=== PATIENT | male | born 1985 | race Caucasian/White ===

== ENCOUNTER 2018-07-05 19:11 | Emergency (ER) | payer OTHER ==
[2018-07-05] MEDS ORDERED: SODIUM CHLORIDE 0.9% 1,000 ML IV STA (20:13)
[2018-07-05 20:40] LABS: Appearance,Urine Clear (Clear); Bilirubin,Urine Negative (Negative); Blood,Urine Negative (Negative); Color,Urine Colorless; Glucose,Urine (UA) Negative (Negative); Ketones,Urine Trace (Negative); Leukocyte Esterase,Urine Negative (Negative); Nitrite,Urine Negative (Negative); PH, Urine 6.5 (5.0-8.0); Protein,Urine Negative (Negative); Specific Gravity,Urine 1.002 (1.001-1.035); Urobilinogen,Urine <2.0 mg/dL (<2.0)
[2018-07-05 20:41] LABS: Basophils % (A) 0 %; Eosinophils # (A) 0.1 k/uL (0-0.7); Eosinophils % (A) 1 %; HCT 46.6 % (39.0-53.0); HGB 15.5 gm/dL (13.0-17.5); Lymphocytes # (A) 1.9 k/uL (1.0-4.8); Lymphocytes % (A) 27 %; MCH 29.6 pg (25.0-35.0); MCHC 33.2 g/dL (31.0-37.0); MCV 89.2 fL (80.0-100.0); Monocytes # (A) 0.3 k/uL (0-1.0); Monocytes % (A) 5 %; Neutrophils # (A) 4.6 k/uL (1.3-7.7); Neutrophils % (A) 65 %; Platelet Count 218 k/uL (150-450); RBC 5.22 m/uL (4.30-5.90); RDW 12.7 % (11.5-15.5); WBC 7.1 k/uL (3.8-10.6)
[2018-07-05 20:51] LABS: ALT 35 U/L (21-72); AST 25 U/L (17-59); Albumin 5.2 g/dL (3.5-5.0); Alkaline Phosphatase 43 U/L (38-126); Anion Gap 12 mmol/L; Blood Urea Nitrogen 12 mg/dL (9-20); Calcium 10.5 mg/dL (8.4-10.2); Carbon Dioxide 27 mmol/L (22-30); Chloride 102 mmol/L (98-107); Glucose 90 mg/dL (74-99); Potassium 3.9 mmol/L (3.5-5.1); Sodium 141 mmol/L (137-145); Total Bilirubin 0.7 mg/dL (0.2-1.3); Total Protein 8.6 g/dL (6.3-8.2)
[2018-07-05 20:53] LABS: INR 1.1 (<1.2); Partial Thromboplastin Time 24.1 sec (22.0-30.0); Prothrombin Time 10.4 sec (9.0-12.0)
[2018-07-05 20:55] LABS: Amphetamine Screen,Urine Not Detected (NotDetected); Barbiturate Screen,Urine Not Detected (NotDetected); Benzodiazepines Screen,Urine Not Detected (NotDetected); Cocaine Screen,Urine Not Detected (NotDetected); Methadone Screen, Urine Not Detected (NotDetected); Opiate Screen,Urine Not Detected (NotDetected); Oxycodone Screen, Urine Not Detected (NotDetected); Phencyclidine Screen,Urine Not Detected (NotDetected); Tricyclic Antidepressant,Urine Not Detected (NotDetected); Urn Cannabinoid Scrn Not Detected (NotDetected)
[2018-07-05 20:56] LABS: Creatine Kinase 135 U/L (55-170)
[2018-07-05 21:08] LABS: Creatine Kinase MB 0.2 ng/mL (0.0-2.4); Troponin I <0.012 ng/mL (0.000-0.034)
--- NOTE | 2018-07-05 21:33 | ED ---
Dizziness HPI - General Chief Complaint: Dizziness Stated Complaint: Dizzy, Neck Pain Time Seen by Provider: 07/05/18 19:56 Source: patient Mode of arrival: ambulatory Limitations: no limitations - History of Present Illness Initial Comments: 32-year-old male patient presents to the emergency department today for evaluation of dizziness, neck pain, and arm numbness and tingling. Patient states for the last several days he has been feeling unwell. States that he developed weakness to his bilateral arms, states he has been having difficulty grasping things at times. States that a couple days later he developed a burning pain at the base of his neck. Patient states he did see a chiropractor today thinking that his symptoms may be related to his neck and did feel better for a little bit but then suddenly became very dizzy and started to feel weak again. Patient has any headaches with this. States he was having some spots in his vision as well as some blurred vision. Denies any fevers, chills, or sweats. Denies any chest pain or shortness of breath. Patient states these episodes to, and he is breathing heavy. States he does feel anxious, but is not sure if his symptoms are related to that. Patient denies any recent rash, abdominal pain, nausea, vomiting, diarrhea, constipation, hematuria, dysuria, urinary urgency, urinary frequency, or any other complaints. - Related Data Allergies Allergy/AdvReac Type Severity Reaction Status Date / Time No Known Allergies Allergy Verified 07/05/18 19:16 Review of Systems ROS Statement: Those systems with pertinent positive or pertinent negative responses have been documented in the HPI. ROS Other: All systems not noted in ROS Statement are negative. Past Medical History Past Medical History: No Reported History History of Any Multi-Drug Resistant Organisms: None Reported Past Surgical History: No Surgical Hx Reported Past Psychological History: Anxiety Smoking Status: Never smoker Past Alcohol Use History: None Reported Past Drug Use History: None Reported General Exam Limitations: no limitations General appearance: alert, in no apparent distress, other (This is a well- developed, well-nourished adult male patient in no acute distress. Vital signs upon presentation are temperature 98.5F, pulse 94, respirations 20, blood pressure 142/86, pulse ox 100% on room air.) Eye exam: Present: normal appearance, PERRL, EOMI. Absent: scleral icterus, conjunctival injection, periorbital swelling ENT exam: Present: normal exam, normal oropharynx, mucous membranes moist Neck exam: Present: normal inspection, full ROM. Absent: tenderness, meningismus, lymphadenopathy Respiratory exam: Present: normal lung sounds bilaterally. Absent: respiratory distress, wheezes, rales, rhonchi, stridor Cardiovascular Exam: Present: regular rate, normal rhythm, normal heart sounds. Absent: systolic murmur, diastolic murmur, rubs, gallop, clicks GI/Abdominal exam: Present: soft, normal bowel sounds. Absent: distended, tenderness, guarding, rebound, rigid Neurological exam: Present: alert, oriented X3, CN II-XII intact Expanded Cranial nerves: EOM's Intact: Normal, Nystagmus: Normal Motor strength exam: RUE: 5, LUE: 5, RLE: 5, LLE: 5 Psychiatric exam: Present: normal affect, normal mood Skin exam: Present: warm, dry, intact, normal color. Absent: rash Course Vital Signs 07/05/18 07/05/18 19:12 22:40 Temperature 98.5 F 98.2 F Pulse Rate 94 68 Respiratory 20 16 Rate Blood Pressure 142/86 132/68 O2 Sat by Pulse 100 98 Oximetry EKG Findings - EKG Comments: EKG Findings:: EKG obtained at 2047 shows normal sinus rhythm with a ventricular rate of 82, NV interval 160, QRS duration 94, QT 356, QTC 4:15. No evidence of ST elevation or depression Medical Decision Making - Medical Decision Making 32-year-old male patient presents the emergency department today for evaluation of dizziness, visual disturbance, and paresthesia to his bilateral upper extremities. Physical examination is unremarkable. Patient is neurologically intact. He is currently feeling better. Labs reviewed and are unremarkable. CT brain and C-spine were performed and were negative. EKG showed normal sinus rhythm. I did discuss findings and results with the patient. We did discuss anxiety as one possible cause as well as cervical radiculopathy as another possible cause however I did feel is beneficial to have a follow-up with neurology for further evaluation. He is also instructed to follow-up with his primary care physician for recheck in 1-2 days. Return parameters were discussed in detail. He verbalizes understanding and agrees with this plan. - Lab Data Result diagrams: 07/05/18 20:27 07/05/18 20:27 Lab Results 07/05/18 07/05/18 07/05/18 Range/Units 20:27 20:27 20:27 WBC 7.1 (3.8-10.6) k/uL RBC 5.22 (4.30-5.90) m/uL Hgb 15.5 (13.0-17.5) gm/dL Hct 46.6 (39.0-53.0) % MCV 89.2 (80.0-100.0) fL MCH 29.6 (25.0-35.0) pg MCHC 33.2 (31.0-37.0) g/dL RDW 12.7 (11.5-15.5) % Plt Count 218 (150-450) k/uL Neutrophils % 65 % Lymphocytes % 27 % Monocytes % 5 % Eosinophils % 1 % Basophils % 0 % Neutrophils # 4.6 (1.3-7.7) k/uL Lymphocytes # 1.9 (1.0-4.8) k/uL Monocytes # 0.3 (0-1.0) k/uL Eosinophils # 0.1 (0-0.7) k/uL Basophils # 0.0 (0-0.2) k/uL PT 10.4 (9.0-12.0) sec INR 1.1 (<1.2) APTT 24.1 (22.0-30.0) sec Sodium 141 (137-145) mmol/L Potassium 3.9 (3.5-5.1) mmol/L Chloride 102 (98-107) mmol/L Carbon Dioxide 27 (22-30) mmol/L Anion Gap 12 mmol/L BUN 12 (9-20) mg/dL Creatinine 0.90 (0.66-1.25) mg/dL Est GFR (CKD-EPI)AfAm >90 (>60 ml/min/1.73 sqM) Est GFR (CKD-EPI)NonAf >90 (>60 ml/min/1.73 sqM) Glucose 90 (74-99) mg/dL Calcium 10.5 H (8.4-10.2) mg/dL Magnesium 2.0 (1.6-2.3) mg/dL Total Bilirubin 0.7 (0.2-1.3) mg/dL AST 25 (17-59) U/L ALT 35 (21-72) U/L Alkaline Phosphatase 43 (38-126) U/L Total Creatine Kinase (55-170) U/L CK-MB (CK-2) (0.0-2.4) ng/mL CK-MB (CK-2) Rel Index Troponin I (0.000-0.034) ng/mL Total Protein 8.6 H (6.3-8.2) g/dL Albumin 5.2 H (3.5-5.0) g/dL Urine Color Urine Appearance (Clear) Urine pH (5.0-8.0) Ur Specific Gerry (1.001-1.035) Urine Protein (Negative) Urine Glucose (UA) (Negative) Urine Ketones (Negative) Urine Blood (Negative) Urine Nitrite (Negative) Urine Bilirubin (Negative) Urine Urobilinogen (<2.0) mg/dL Ur Leukocyte Esterase (Negative) Urine Opiates Screen (NotDetected) Ur Oxycodone Screen (NotDetected) Urine Methadone Screen (NotDetected) Ur Propoxyphene Screen (NotDetected) Ur Barbiturates Screen (NotDetected) U Tricyclic Antidepress (NotDetected) Ur Phencyclidine Scrn (NotDetected) Ur Amphetamines Screen (NotDetected) U Methamphetamines Scrn (NotDetected) U Benzodiazepines Scrn (NotDetected) Urine Cocaine Screen (NotDetected) U Marijuana (THC) Screen (NotDetected) 07/05/18 07/05/18 Range/Units 20:27 20:27 WBC (3.8-10.6) k/uL RBC (4.30-5.90) m/uL Hgb (13.0-17.5) gm/dL Hct (39.0-53.0) % MCV (80.0-100.0) fL MCH (25.0-35.0) pg MCHC (31.0-37.0) g/dL RDW (11.5-15.5) % Plt Count (150-450) k/uL Neutrophils % % Lymphocytes % % Monocytes % % Eosinophils % % Basophils % % Neutrophils # (1.3-7.7) k/uL Lymphocytes # (1.0-4.8) k/uL Monocytes # (0-1.0) k/uL Eosinophils # (0-0.7) k/uL Basophils # (0-0.2) k/uL PT (9.0-12.0) sec INR (<1.2) APTT (22.0-30.0) sec Sodium (137-145) mmol/L Potassium (3.5-5.1) mmol/L Chloride (98-107) mmol/L Carbon Dioxide (22-30) mmol/L Anion Gap mmol/L BUN (9-20) mg/dL Creatinine (0.66-1.25) mg/dL Est GFR (CKD-EPI)AfAm (>60 ml/min/1.73 sqM) Est GFR (CKD-EPI)NonAf (>60 ml/min/1.73 sqM) Glucose (74-99) mg/dL Calcium (8.4-10.2) mg/dL Magnesium (1.6-2.3) mg/dL Total Bilirubin (0.2-1.3) mg/dL AST (17-59) U/L ALT (21-72) U/L Alkaline Phosphatase (38-126) U/L Total Creatine Kinase 135 (55-170) U/L CK-MB (CK-2) 0.2 (0.0-2.4) ng/mL CK-MB (CK-2) Rel Index 0.1 Troponin I <0.012 (0.000-0.034) ng/mL Total Protein (6.3-8.2) g/dL Albumin (3.5-5.0) g/dL Urine Color Colorless Urine Appearance Clear (Clear) Urine pH 6.5 (5.0-8.0) Ur Specific Gerry 1.002 (1.001-1.035) Urine Protein Negative (Negative) Urine Glucose (UA) Negative (Negative) Urine Ketones Trace H (Negative) Urine Blood Negative (Negative) Urine Nitrite Negative (Negative) Urine Bilirubin Negative (Negative) Urine Urobilinogen <2.0 (<2.0) mg/dL Ur Leukocyte Esterase Negative (Negative) Urine Opiates Screen Not Detected (NotDetected) Ur Oxycodone Screen Not Detected (NotDetected) Urine Methadone Screen Not Detected (NotDetected) Ur Propoxyphene Screen Not Detected (NotDetected) Ur Barbiturates Screen Not Detected (NotDetected) U Tricyclic Antidepress Not Detected (NotDetected) Ur Phencyclidine Scrn Not Detected (NotDetected) Ur Amphetamines Screen Not Detected (NotDetected) U Methamphetamines Scrn Not Detected (NotDetected) U Benzodiazepines Scrn Not Detected (NotDetected) Urine Cocaine Screen Not Detected (NotDetected) U Marijuana (THC) Screen Not Detected (NotDetected) - Radiology Data Radiology results: report reviewed, image reviewed CT brain and C-spine without contrast was obtained. Report was reviewed in its entirety. Impression by Dr. Baker shows normal computed tomography scan of the brain. Negative computed tomography scan of the cervical spine. Disposition Clinical Impression: Dizziness, Paresthesia Disposition: HOME SELF-CARE Condition: Good Instructions: Paresthesia (ED), Dizziness (ED) Additional Instructions: Follow-up with neurologist and a primary care physician for recheck as soon as possible. Return here immediately for any new, worsening, or concerning symptoms. Is patient prescribed a controlled substance at d/c from ED?: No Referrals: Nilson Hargrove MD [STAFF PHYSICIAN] - 1-2 days Skye Fragoso MD [STAFF PHYSICIAN] - 1-2 days Time of Disposition: 22:35
--- NOTE | 2018-07-05 21:37 | CT ---
EXAMINATION TYPE: CT brain margarita prieto con DATE OF EXAM: 07/05/2018 COMPARISON: None HISTORY: DIZZINESS AND NECK PAIN CT DLP: 1688 mGycm Automated exposure control for dose reduction was used. TECHNIQUE: CT scan of the head and cervical spine are performed without contrast. FINDINGS: Ventricles and sulci appear normal. There is no mass effect nor midline shift. There is n o sign of intracranial hemorrhage. The calvarium appears intact. The cervical vertebra have normal spacing and alignment. Posterior elements are intact. Facet joints appear normal. The skull base is intact. IMPRESSION: Normal CT scan of the brain. Negative CT scan of the cervical spine.
[2018-07-05 22:46] VITALS: BP 132/68; PULSE 68; RESP 16; TEMP 98.2
== END 2018-07-05 22:40 | disposition home or self-care (01) ==
LOC: EC 19:11
DX: R42 Dizziness and giddiness (principal); R20.2 Paresthesia of skin; M54.2 Cervicalgia
CPT/HCPCS: 36415; 70450; 72125; 80053; 80306; 81003; 82550; 82553; 83735; 84484; 85025; 85610; 85730; 93005; 96360; 99284

== ENCOUNTER → 2019-01-17 | Outpatient (CLI) | payer OTHER ==
--- NOTE | 2019-01-17 13:26 | XR ---
EXAMINATION TYPE: XR chest 2V DATE OF EXAM: 01/17/2019 COMPARISON: NONE HISTORY: Peripheral vascular disease. TECHNIQUE: Frontal and lateral views of the chest are obtained. FINDINGS: There is no focal air space opacity, pleural effusion, or pneumothorax seen. The cardiac silhouette size is within normal limits. Haziness at the right heart border relates to slight pectus excavatum deformity. There is flattening of the diaphragms on the lateral view. The osseous structure s are intact. IMPRESSION: No acute cardiopulmonary process. Flattening of the diaphragms on the lateral view likel y relates to degree of inspiration and pulmonary hyperinflation however correlation with pulmonary fu nction tests could be performed to exclude COPD.
== END ==
LOC: RADXRMAIN 13:07
PROVIDERS: ATTEND Nurse Practitioner Adult Health
DX: I73.00 Raynaud's syndrome without gangrene (principal)
CPT/HCPCS: 71046

== ENCOUNTER → 2019-11-21 | Outpatient (CLI) | payer OTHER ==
--- NOTE | 2019-11-21 09:46 | US ---
EXAMINATION TYPE: US abdomen complete DATE OF EXAM: 11/21/2019 COMPARISON: NONE CLINICAL HISTORY: R10.11 R11.0 Nausea. Pt states RUQ pain and "digestive issues" EXAM MEASUREMENTS: Liver Length: 16.0 cm Gallbladder Wall: 0.1 cm CBD: 0.3 cm Spleen: 11.7 cm Right Kidney: 12.1 x 3.9 x 4.4 cm Left Kidney: 13.2 x 5.1 x 5.9 cm Pancreas: wnl, tail obscured by overlying bowel gas Liver: wnl Gallbladder: wnl Evidence for sonographic Arnold's sign: Yes CBD: wnl Spleen: wnl Right Kidney: wnl Left Kidney: wnl Upper IVC: wnl Abd Aorta: wnl IMPRESSION: 1. Normal ultrasound abdomen
== END ==
LOC: RADUSWWP 08:50
PROVIDERS: ATTEND Internal Medicine
DX: R10.11 Right upper quadrant pain (principal); R11.0 Nausea
CPT/HCPCS: 76700

== ENCOUNTER → 2020-03-03 | Outpatient (CLI) | payer OTHER ==
[2020-03-03 19:06] LABS: C Reactive Protein <0.4 mg/dL (0.0-0.8); Calcium 9.9 mg/dL (8.7-10.3); Magnesium 1.9 mg/dL (1.5-2.4); Phosphorus 2.8 mg/dL (2.4-5.1)
== END | disposition home or self-care (01) ==
LOC: LABWHC1 11:26
PROVIDERS: ATTEND Family Medicine
DX: E03.9 Hypothyroidism, unspecified (principal); R14.0 Abdominal distension (gaseous); R10.84 Generalized abdominal pain; R10.816 Epigastric abdominal tenderness
CPT/HCPCS: 36415; 82310; 82390; 82607; 83735; 84100; 84443; 85652; 86140; 86800

== ENCOUNTER → 2020-03-28 | Outpatient (CLI) | payer OTHER ==
--- NOTE | 2020-03-28 10:20 | US ---
EXAMINATION TYPE: US abdomen complete DATE OF EXAM: 03/28/2020 COMPARISON: US 2019 CLINICAL HISTORY: R10.84 Abdominal pain, generalized. Gallbladder removed 3 months ago, patient still having RUQ pain, nausea and bloating. EXAM MEASUREMENTS: Liver Length: 15.7 cm Gallbladder Wall: surgically absent CBD: 0.4 cm Spleen: 11.5 cm Right Kidney: 12.0 x 5.0 x 4.8 cm Left Kidney: 12.2 x 5.3 x 5.0 cm Pancreas: visualized portions wnl, tail obscured by overlying midline bowel gas Liver: wnl Gallbladder: surgically absent Evidence for sonographic Arnold's sign: no CBD: wnl Spleen: wnl Right Kidney: prominent proximal ureter Left Kidney: wnl Upper IVC: wnl Abd Aorta: wnl The liver is homogenous. The intrahepatic portion of the IVC and proximal abdominal aorta are within normal limits. Common bile duct is unremarkable. The visualized portions of the pancreas are homog enous. The spleen is unremarkable. Kidneys are symmetric and free of hydronephrosis. No renal lesi ons are seen. IMPRESSION: Surgical absence of the gallbladder. Otherwise unremarkable abdominal ultrasound.
== END | disposition home or self-care (01) ==
LOC: RADUSWWP 09:32
PROVIDERS: ATTEND Family Medicine
DX: R10.84 Generalized abdominal pain (principal); Z90.49 Acquired absence of other specified parts of digestive tract
CPT/HCPCS: 76700

== ENCOUNTER → 2020-04-15 | Outpatient (CLI) | payer OTHER ==
--- NOTE | 2020-04-15 14:27 | MR ---
EXAMINATION TYPE: MR brain wo con DATE OF EXAM: 04/15/2020 COMPARISON: CT brain dated 07/05/2018 HISTORY: Dizziness TECHNIQUE: Multiplanar, multisequence images of the brain and brainstem is performed without IV contrast. FINDINGS: Diffusion weighted images demonstrate no evidence of a recent infarct or other diffusion ab normality. There is no extra-axial fluid. There are 4 punctate foci of T2/FLAIR hyperintensity zaire uring up to 2 mm in the pericallosal, juxtacortical, and periatrial white matter. The ventricular sys tem and cisternal spaces are normal in size and appearance. The brain volume is age appropriate. Midline structures demonstrate normal morphology. There is a small pineal gland cyst measuring 0.8 c m without mass effect on the superior tectum or narrowing of the cerebral aqueduct. The craniocervica l junction appears within normal limits. The dural venous sinuses appear patent. The visualized sinus es are clear and the globes are intact. There is a scant amount of fluid in the bilateral mastoid air cells. IMPRESSION: 1. No acute infarct, midline shift or mass effect. 2. Trace amount of fluid in the bilateral mastoid air cells. Correlate for point tenderness to exclud e mastoiditis. 3. Few punctate foci of nonspecific white matter change. Most common etiologies include sequela of mi graines, vasculitis, or demyelinating disease. One of these is pericallosal and therefore correlation with clinical symptoms to evaluate for demyelinating disease/multiple sclerosis is recommended.
--- NOTE | 2020-04-15 16:11 | MR ---
EXAMINATION TYPE: MR thoracic spine wo con DATE OF EXAM: 04/15/2020 COMPARISON: None HISTORY: Back pain FINDINGS: Multiplanar, multisequence images of the thoracic spine were acquired without intravenous c ontrast. FINDINGS: There is are small right paracentral disc herniations at T5-T6 and at T6-T7 without spinal canal sten osis or neural foraminal narrowing. Multilevel disc desiccation is seen of the thoracic spine without additional disc herniation. No significant neural foraminal narrowing at any level of the thoracic s pine. The thoracic spinal cord signal is within normal limits. Vertebral body heights and alignment a re maintained of the thoracic spine. No suspicious bone marrow signal is seen. There is a questionabl e 6 mm left upper lobe pulmonary nodule on coronal imaging versus pulmonary vessel for which CT is re commended. IMPRESSION: 1. Small right paracentral disc herniations at C5-6 and T6-T7 without spinal canal stenosis or neural foraminal narrowing. 2. Mild multilevel degenerative disc disease of the thoracic spine. 3. Questionable 6 mm left upper lobe pulmonary nodule versus pulmonary vessel for which CT thorax is recommended for further evaluation.
== END | disposition home or self-care (01) ==
LOC: RADMRIMAIN 10:57
PROVIDERS: ATTEND Family Medicine
DX: M51.24 Other intervertebral disc displacement, thoracic region (principal); M51.34 Other intervertebral disc degeneration, thoracic region; R90.89 Other abnormal findings on diagnostic imaging of central nervous system; H46.9 Unspecified optic neuritis
CPT/HCPCS: 70551; 72146

== ENCOUNTER → 2020-05-06 | Outpatient (CLI) | payer OTHER ==
[2020-05-06 08:06] LABS: Basophils % (A) 1 %; Eosinophils # (A) 0.1 k/uL (0-0.7); Eosinophils % (A) 2 %; HCT 45.2 % (39.0-53.0); HGB 15.1 gm/dL (13.0-17.5); Lymphocytes # (A) 2.1 k/uL (1.0-4.8); Lymphocytes % (A) 38 %; MCHC 33.3 g/dL (31.0-37.0); MCV 92.9 fL (80.0-100.0); Mean Platelet Volume 9.2; Monocytes # (A) 0.3 k/uL (0-1.0); Monocytes % (A) 5 %; Neutrophils # (A) 2.9 k/uL (1.3-7.7); Neutrophils % (A) 52 %; Platelet Count 183 k/uL (150-450); RBC 4.87 m/uL (4.30-5.90); WBC 5.5 k/uL (3.8-10.6)
[2020-05-06 11:48] LABS: T4, Free (Free Thyroxine) 1.3 ng/dL (0.80-1.80)
[2020-05-06 12:05] LABS: Hepatitis B Core IgM Non-Reactive (Non-Reactive); Hepatitis B Surface AB- Quant 34.2 mIU/mL; Hepatitis B Surface Antibody Reactive (Non-Reactive); Hepatitis B Surface Antigen Non-Reactive (Non-Reactive)
[2020-05-06 12:18] LABS: African American GFR (CKD) 111.7 (60.0-200.0); Albumin 4.7 g/dL (3.80-4.90); Albumin/Globulin Ratio 2.04 (1.60-3.17); Anion Gap 7.3 mmol/L (4.00-12.00); Calcium 9.6 mg/dL (8.7-10.3); Carbon Dioxide 30.7 mmol/L (21.6-31.8); Folate, Serum 17.8 ng/mL; Globulin 2.3 g/dL (1.6-3.3); Non-African American GFR(CKD) 96.4 (60.0-200.0); Potassium 4.3 mmol/L (3.5-5.5); Total Bilirubin 0.4 mg/dL (0.3-1.2)
[2020-05-06 12:29] LABS: Hemoglobin A1C 5.1 % (4.0-6.0)
[2020-05-06 13:41] LABS: HIV 2 AB Non-Reactive (Non-Reactive); HIV AB P24 Non-Reactive (Non-Reactive); HIV P24 AG Non-Reactive (Non-Reactive)
[2020-05-06 19:31] LABS: Total Protein,CSF 31 mg/dL (12-60)
[2020-05-06 21:30] LABS: Appearance,CSF Clear; CSF Tube Number 4
[2020-05-06 21:31] LABS: Nucleated Cells, CSF 0 u/L (0-5); Red Blood Cell,CSF 0 u/L (0-10)
[2020-05-08 08:42] LABS: Vit B1(Thiamine) 59 ug/L (38-122)
== END | disposition home or self-care (01) ==
LOC: LABWHC1 07:24
PROVIDERS: ATTEND Nurse Practitioner Family
DX: G35 Multiple sclerosis (principal)
CPT/HCPCS: 36415; 80053; 82306; 82607; 82746; 83036; 83873; 84157; 84207; 84425; 84439; 84443; 84481; 84591; 85025; 86704; 86705; 86706; 86787; 87340; 87390; 87801; 89050

== ENCOUNTER → 2020-05-22 | Outpatient (CLI) | payer OTHER ==
--- NOTE | 2020-05-22 11:50 | CT ---
EXAMINATION TYPE: CT chest w con DATE OF EXAM: 05/22/2020 COMPARISON: Correlation MRI thoracic spine 04/15/2020 HISTORY: 34-year-old male R91.1 Lung nodule. TECHNIQUE: Contiguous axial scanning of the chest after the administration of 100ml mL of Isovue 300. Coronal/sagittal reconstructions performed. CT DLP: 204.5mGycm. Automatic exposure control utilized for a dose reduction. FINDINGS: Heart normal size without pericardial effusion. Aorta normal caliber with bovine configuration to the aortic arch. Some mild residual thymic tissue. Trace bilateral gynecomastia. No thoracic lymphadenopathy by CT siz e criteria. Minimal strandy subpleural atelectasis at the posterior lung bases. No consolidation or pleural effus ion. No suspicious pulmonary nodule or mass. Tiny hiatal hernia. Visualized upper abdomen shows cholecystectomy clips. Mild thickening of the left adrenal gland without discrete nodularity. Bones: No osseous destructive process. IMPRESSION: 1. No suspicious pulmonary nodule. The questioned left upper lobe nodule on recent MRI likely corresp onded to pulmonary vasculature or artifact. 2. Tiny hiatal hernia.
== END | disposition home or self-care (01) ==
LOC: RADCTMAIN 10:47
PROVIDERS: ATTEND Family Medicine
DX: R91.1 Solitary pulmonary nodule (principal)
CPT/HCPCS: 71260; Q9967